=== PATIENT | female | born 1985 | race Two or more races ===

== ENCOUNTER 2021-10-17 10:24 | Observation (INO) | payer SELFPAY ==
[~2021-10-17] VITALS: Ht 144.8 cm; Wt 52.0 kg
[2021-10-17] MEDS ORDERED: ACCU-CHEK COMFORT CURVE STRIP VI ONE (11:00)
[2021-10-17] MEDS ORDERED: LACTATED RINGER'S 1,000 ML IV ONE (12:15)
[2021-10-17] MEDS ORDERED: TERBUTALINE SULFATE 1 MG/ML 1ML VIAL SC ONE (12:15)
[2021-10-28] MEDS ORDERED: NIF10C PO ×2 (15:53)
[2021-10-28] MEDS ORDERED: PREN27TA7 OR ×2 (15:53)
== END 2021-10-17 15:20 | disposition home or self-care (01) ==
LOC: EDBD → LDRP 10:24
PROVIDERS: ADMIT Obstetrics & Gynecology Obstetrics; ATTEND Obstetrics & Gynecology Obstetrics
DX: O24.419 Gestational diabetes mellitus in pregnancy, unspecified control (principal); Z3A.33 33 weeks gestation of pregnancy
CPT/HCPCS: 59025; 76818; 81002; 82948; 82962; 94760; 96360; 96361; G0378; J3105

== ENCOUNTER 2021-10-20 09:48 | Observation (INO) | payer MEDICAID, OTHER | END 2021-10-20 12:00 | disposition home or self-care (01) | LOC: UNDOADMOB 09:48 → LDRP 09:48 → EDBD 09:48 → LDRP 10:30 | PROVIDERS: ADMIT Obstetrics & Gynecology; ATTEND Obstetrics & Gynecology | DX: O24.419 Gestational diabetes mellitus in pregnancy, unspecified control (principal); O60.03 Preterm labor without delivery, third trimester; Z3A.33 33 weeks gestation of pregnancy; Z91.040 Latex allergy status | CPT/HCPCS: 59025; 76818; 81002; 82948; 82962; 94760; G0378 ==

== ENCOUNTER 2021-10-27 14:21 | Observation (INO) | payer MEDICAID ==
[~2021-10-27] VITALS: Ht 144.8 cm; Wt 49.9 kg
[2021-10-28] MEDS ORDERED: LACTATED RINGER'S 1,000 ML IV ONE ×3 (12:00→17:30)
[2021-10-28] MEDS: TERBUTALINE SULFATE 1 MG/ML 1ML VIAL SC SCH ×2 (12:16→14:08)
[2021-10-28] MEDS ORDERED: NIFEdipine 10 MG CAP PO ONE (13:30)
[2021-10-28] MEDS ORDERED: PREN27TA7 OR (15:53)
[2021-10-28] MEDS ORDERED: NIF10C PO (15:53)
[2021-10-28] MEDS ORDERED: BETAMETHASONE ACET (30mg/5ml) 5ml Vial 6mg/ml IM ONE (16:00)
[2021-10-28] MEDS ORDERED: ACETAMINOPHEN 325 MG TAB PO ONE (17:45)
[2021-10-28] MEDS ORDERED: ceFAZolin 1GM/50ML 50 ML IV ONE (17:45)
[2021-10-28] MEDS ORDERED: LACTATED RINGER'S 2,000 ML IV ONE (19:30)
[2021-10-28 19:38] LABS: Basophils # (auto) 0 10 ^3/uL (0-0.2); Basophils % (auto) 0.2 % (0.0-2.0); Eosinophils # (auto) 0 10 ^3/uL (0-0.8); Hemoglobin 10.6 g/dL (12.2-16.2); Lymphocytes # (auto) 0.2 10 ^3/uL (0.4-5.4); Lymphocytes % (auto) 2.2 % (10.0-50.0); Mean Corpuscular Hemoglobin 27.3 pg (28.0-32.0); Mean Corpuscular Hgb Conc. 32.2 g/dL (32.0-36.0); Mean Corpuscular Volume 84.8 fL (80.0-100.0); Monocytes # (auto) 0.2 10 ^3/uL (0-1.3); Neutrophils # (auto) 7.2 10 ^3/uL (1.6-8.6); Neutrophils % (auto) 94.6 % (37.0-80.0); Nucleated Red Blood Cells % 0.1 %; Red Blood Cells 3.89 10^6/uL (4.0-5.20); Red Cell Distribution Width 14.7 % (11.8-14.3); White Blood Cell 7.7 10^3/uL (4.4-10.8)
[2021-10-28 19:58] LABS: Phosphorus 1.4 mg/dL (2.5-4.90)
[2021-10-28 20:00] LABS: Albumin 2.2 g/dL (3.4-5.0); BUN/Creatinine Ratio 8.2; Calcium 8.6 mg/dL (8.5-10.1); Potassium 3.6 mmol/L (3.5-5.1)
[2021-10-28 20:03] LABS: Bilirubin, Total 0.4 mg/dL (0.2-1.0); Total Protein 6.2 g/dL (6.4-8.2)
[2021-10-28 21:24] LABS: Urine Bacteria FEW /hpf (None Seen); Urine Blood Negative /uL (Negative); Urine Specific Gravity 1.003 (1.001-1.035); Urine WBC <1 /hpf (0 - 5)
== END 2021-10-28 22:46 | disposition home or self-care (01) ==
LOC: LDRP 10-28 09:23 → UNDOADMOB 10-28 09:23 → LDRP 10-28 09:34
PROVIDERS: ADMIT Obstetrics & Gynecology; ATTEND Obstetrics & Gynecology
DX: O24.419 Gestational diabetes mellitus in pregnancy, unspecified control (principal); Z20.822 Contact with and (suspected) exposure to COVID-19; O60.03 Preterm labor without delivery, third trimester; Z3A.34 34 weeks gestation of pregnancy
CPT/HCPCS: 36415; 59025; 76805; 76818; 80053; 81001; 81002; 82948; 82962; 83735; 84100; 84484; 85025; 87426; 94760; 96361; 96365; 96366; 96372; G0378; J0690; J0702; J3105; U0003; 96360

== ENCOUNTER 2021-10-29 08:18 | Observation (INO) | payer MEDICAID ==
[~2021-10-29] VITALS: Ht 152.4 cm; Wt 65.8 kg
[~2021-10-29 08:18] MED LIST: NIF10C PO; PREN27TA7 OR
[2021-10-29] MEDS ORDERED: BETAMETHASONE ACET (30mg/5ml) 5ml Vial 6mg/ml IM ONE ×3 (10:23→10:56)
== END 2021-10-29 11:09 | disposition home or self-care (01) ==
LOC: UNDOADMOB 08:18 → LDRP 08:18
PROVIDERS: ADMIT Obstetrics & Gynecology; ATTEND Obstetrics & Gynecology
DX: O98.513 Other viral diseases complicating pregnancy, third trimester (principal); U07.1 COVID-19; O60.03 Preterm labor without delivery, third trimester; O24.419 Gestational diabetes mellitus in pregnancy, unspecified control; Z3A.34 34 weeks gestation of pregnancy; Z91.040 Latex allergy status
CPT/HCPCS: 82962; 96372; G0378

== ENCOUNTER 2021-10-31 08:35 | Observation (INO) | payer MEDICAID ==
[2021-10-31] MEDS ORDERED: LACTATED RINGER'S 1,000 ML IV ONE (10:00)
[2021-10-31] MEDS ORDERED: SODIUM CHLORIDE 0.9% 1,000 ML IV STA (10:06)
== END 2021-10-31 12:23 | disposition home or self-care (01) ==
LOC: LDRP 08:35
PROVIDERS: ADMIT Obstetrics & Gynecology; ATTEND Obstetrics & Gynecology
DX: O24.419 Gestational diabetes mellitus in pregnancy, unspecified control (principal); O60.03 Preterm labor without delivery, third trimester; Z3A.35 35 weeks gestation of pregnancy
CPT/HCPCS: 59025; 76818; 81002; 82948; 82962; 94760; 96360; 96361; G0378

== ENCOUNTER 2021-11-03 13:00 | Observation (INO) | payer MEDICAID | END 2021-11-03 15:07 | disposition home or self-care (01) | LOC: LDRP 13:00 → UNDOADMOB 13:00 → LDRP 13:41 → UNDODISOB 15:07 | PROVIDERS: ADMIT Obstetrics & Gynecology; ATTEND Obstetrics & Gynecology | DX: O24.419 Gestational diabetes mellitus in pregnancy, unspecified control (principal); O60.03 Preterm labor without delivery, third trimester; Z3A.35 35 weeks gestation of pregnancy; Z91.040 Latex allergy status | CPT/HCPCS: 36415; 59025; 76818; 81002; 82948; 82962; G0378 ==

== ENCOUNTER 2021-11-10 10:36 | Observation (INO) | payer MEDICAID ==
[~2021-11-10 10:36] MED LIST changes: -NIF10C PO
[2021-11-10 15:51] LABS: Basophils # (auto) 0 10 ^3/uL (0-0.2); Basophils % (auto) 0.3 % (0.0-2.0); Eosinophils # (auto) 0.1 10 ^3/uL (0-0.8); Eosinophils % (auto) 0.9 % (0.0-7.0); Hematocrit 34.4 % (36.0-46.0); Lymphocytes # (auto) 2.2 10 ^3/uL (0.4-5.4); Lymphocytes % (auto) 24.6 % (10.0-50.0); Mean Corpuscular Hemoglobin 27.1 pg (28.0-32.0); Mean Corpuscular Hgb Conc. 32.1 g/dL (32.0-36.0); Mean Corpuscular Volume 84.6 fL (80.0-100.0); Monocytes # (auto) 0.6 10 ^3/uL (0-1.3); Monocytes % (auto) 7.2 % (0.0-12.0); Neutrophils # (auto) 5.9 10 ^3/uL (1.6-8.6); Red Blood Cells 4.06 10^6/uL (4.0-5.20); Red Cell Distribution Width 14.7 % (11.8-14.3); White Blood Cell 8.9 10^3/uL (4.4-10.8)
[2021-11-10 16:06] LABS: INR 0.88 (0.9-1.15); Partial Thromboplastin Time 25.2 sec (24.6-33.4)
[2021-11-10 16:09] LABS: Albumin 2.3 g/dL (3.4-5.0); Calcium 8.6 mg/dL (8.5-10.1); Potassium 3.7 mmol/L (3.5-5.1)
[2021-11-10 16:13] LABS: BUN/Creatinine Ratio 11.4; Bilirubin, Total 0.3 mg/dL (0.2-1.0); Total Protein 6.6 g/dL (6.4-8.2)
[2021-11-10 16:29] LABS: Alcohol, Urine < 3.0 mg/dL (0-10); Amphetamine Screen, Urine NEGATIVE (NEGATIVE); Barbiturate Scree,Urine NEGATIVE (NEGATIVE); Benzodiazephine Screen, Urine NEGATIVE (NEGATIVE); Cannabinoid Screen, Urine NEGATIVE (NEGATIVE); Cocaine Screen, Urine NEGATIVE (NEGATIVE); Opiate Scree,Urine NEGATIVE (NEGATIVE); Phencyclidine Screen, Urine NEGATIVE (NEGATIVE)
[2021-11-10 16:42] LABS: Urine Bacteria FEW /hpf (None Seen); Urine Blood Negative /uL (Negative); Urine Specific Gravity 1.003 (1.001-1.035); Urine WBC 1 /hpf (0 - 5)
[2021-11-11 06:07] LABS: RPR Non Reactive (Non Reactive)
== END 2021-11-10 17:40 | disposition home or self-care (01) ==
LOC: UNDOADMOB 12:15 → OVERFLOW 12:15 → LDRP 13:39
PROVIDERS: ADMIT Obstetrics & Gynecology; ATTEND Obstetrics & Gynecology
DX: O24.419 Gestational diabetes mellitus in pregnancy, unspecified control (principal); Z20.822 Contact with and (suspected) exposure to COVID-19; Z3A.36 36 weeks gestation of pregnancy; Z79.899 Other long term (current) drug therapy
CPT/HCPCS: 36415; 59025; 76805; 76818; 80053; 80307; 81001; 82948; 82962; 85025; 85610; 85730; 86592; 86850; 86900; 86901; 87426; 94760; G0378

== ENCOUNTER 2021-11-11 08:31 | Observation (INO) | payer MEDICAID ==
[~2021-11-11] VITALS: Ht 145 cm; Wt 63.0 kg
[2021-11-11] MEDS ORDERED: D5W/LACTATED RINGERS 1,000 ML IV ONE (13:45)
[2021-11-11] MEDS ORDERED: SODIUM CHLORIDE 0.9% 1,000 ML IV SCH (16:30)
[2021-11-11 22:52] LABS: Protein, Urine 29.2 mg/dL (0.0-11.9)
== END 2021-11-11 22:10 | disposition home or self-care (01) ==
LOC: UNDOADMOB 10:41 → LDRP 10:41
PROVIDERS: ADMIT Obstetrics & Gynecology; ATTEND Obstetrics & Gynecology
DX: O36.8130 Decreased fetal movements, third trimester, not applicable or unspecified (principal); O62.9 Abnormality of forces of labor, unspecified; Z3A.36 36 weeks gestation of pregnancy; Z79.899 Other long term (current) drug therapy
CPT/HCPCS: 36415; 59025; 76818; 81002; 82570; 82948; 82962; 84156; 84550; 94760; 96360; 96361; G0378; 96366

== ENCOUNTER 2021-11-13 16:20 | Observation (INO) | payer MEDICAID ==
[~2021-11-13] VITALS: Ht 145 cm; Wt 63.0 kg
[2021-11-13] MEDS ORDERED: LACTATED RINGER'S 1,000 ML IV ONE ×2 (18:15→19:30)
== END 2021-11-13 21:27 | disposition home or self-care (01) ==
LOC: LDRP 16:20
PROVIDERS: ADMIT Obstetrics & Gynecology; ATTEND Obstetrics & Gynecology
DX: O24.419 Gestational diabetes mellitus in pregnancy, unspecified control (principal); O62.9 Abnormality of forces of labor, unspecified; Z3A.37 37 weeks gestation of pregnancy
CPT/HCPCS: 59025; 76818; 81002; 82948; 82962; 94762; 96360; 96361; G0378

== ENCOUNTER 2021-11-16 08:00 | Observation (INO) | payer MEDICAID | END 2021-11-16 10:00 | disposition home or self-care (01) | LOC: LDRP 08:00 | PROVIDERS: ADMIT Obstetrics & Gynecology Obstetrics; ATTEND Obstetrics & Gynecology Obstetrics | DX: O24.419 Gestational diabetes mellitus in pregnancy, unspecified control (principal); Z3A.37 37 weeks gestation of pregnancy | CPT/HCPCS: 59025; 76818; 82948; 82962; 94760; G0378 ==

== ENCOUNTER 2021-11-18 10:38 | Observation (INO) | payer MEDICAID | END 2021-11-18 14:40 | disposition home or self-care (01) | LOC: UNDOADMOB 12:32 → LDRP 12:32 | PROVIDERS: ADMIT Obstetrics & Gynecology; ATTEND Obstetrics & Gynecology | DX: O24.419 Gestational diabetes mellitus in pregnancy, unspecified control (principal); O62.9 Abnormality of forces of labor, unspecified; Z3A.38 38 weeks gestation of pregnancy | CPT/HCPCS: 59025; 76818; 81002; 82948; 82962; 94760; G0378 ==

== ENCOUNTER 2021-11-20 14:11 | Observation (INO) | payer MEDICAID | END 2021-11-20 17:00 | disposition home or self-care (01) | LOC: LDRP 14:11 → UNDOADMOB 14:11 → LDRP 14:22 | PROVIDERS: ADMIT Obstetrics & Gynecology; ATTEND Obstetrics & Gynecology | DX: O24.419 Gestational diabetes mellitus in pregnancy, unspecified control (principal); O62.9 Abnormality of forces of labor, unspecified; Z3A.38 38 weeks gestation of pregnancy | CPT/HCPCS: 59025; 76818; 81002; 82948; 82962; 94760; G0378 ==

== ENCOUNTER 2021-11-22 08:52 | Observation (INO) | payer MEDICAID ==
[~2021-11-22] VITALS: Ht 147.3 cm; Wt 60.8 kg
[2021-11-22] MEDS ORDERED: LACTATED RINGER'S 1,000 ML IV ONE (10:00)
[2021-11-22] MEDS ORDERED: LACT. RINGERS/OXYTOCIN 20UNITS 1,000 ML IV SCH (14:45)
== END 2021-11-22 18:02 | disposition home or self-care (01) ==
LOC: LDRP 08:52
PROVIDERS: ADMIT Obstetrics & Gynecology; ATTEND Obstetrics & Gynecology
DX: O24.419 Gestational diabetes mellitus in pregnancy, unspecified control (principal); Z3A.38 38 weeks gestation of pregnancy
CPT/HCPCS: 59025; 76818; 81002; 82948; 82962; 94760; 96361; 96365; G0378; J2590; 96360; 96366

== ENCOUNTER 2021-11-24 10:01 | Observation (INO) | payer MEDICAID | END 2021-11-24 14:53 | disposition home or self-care (01) | LOC: LDRP 13:10 | PROVIDERS: ADMIT Obstetrics & Gynecology; ATTEND Obstetrics & Gynecology | DX: O24.419 Gestational diabetes mellitus in pregnancy, unspecified control (principal); Z3A.38 38 weeks gestation of pregnancy | CPT/HCPCS: 59025; 76818; 81002; 82962; G0378 ==

== ENCOUNTER 2021-11-24 20:52 | Observation (INO) | payer MEDICAID | END 2021-11-24 23:42 | disposition home or self-care (01) | LOC: LDRP 20:52 | PROVIDERS: ADMIT Obstetrics & Gynecology; ATTEND Obstetrics & Gynecology | DX: O62.9 Abnormality of forces of labor, unspecified (principal); O24.419 Gestational diabetes mellitus in pregnancy, unspecified control; Z3A.38 38 weeks gestation of pregnancy; Z91.040 Latex allergy status | CPT/HCPCS: 59025; 81002; 82948; 82962; 94760; G0378 ==

== ENCOUNTER 2021-11-25 03:15 | Inpatient (IN) | payer MEDICAID ==
[~2021-11-25] VITALS: Ht 145 cm; Wt 60.8 kg
[2021-11-25] MEDS ORDERED: BUTORPHANOL TARTRATE 2 MG/1 ML VIAL IV PRN ×2 (03:45)
[2021-11-25] MEDS ORDERED: PHISODERM TOP SOLN 240ML BTL TOP PRN (03:45)
[2021-11-25] MEDS ORDERED: PROMETHAZINE HCL 25 MG/ML 1ML IV PRN (03:45)
[2021-11-25] MEDS ORDERED: DERMOPLAST 60ML BOTTLE TOP PRN (03:45)
[2021-11-25] MEDS ORDERED: LIDOCAINE 2%HCL (LOCAL ANESTH.) INJ 10ml MDV IJ PRN (03:45)
[2021-11-25] MEDS ORDERED: WITCH HAZEL-GLYCERIN PAD TOP PRN (03:45)
[2021-11-25] MEDS ORDERED: LACTATED RINGER'S 1,000 ML IV SCH (03:45)
[2021-11-25 04:12] LABS: Urine WBC None Seen /hpf (0 - 5)
[2021-11-25 04:15] LABS: Basophils # (auto) 0 10 ^3/uL (0-0.2); Basophils % (auto) 0.6 % (0.0-2.0); Eosinophils # (auto) 0.1 10 ^3/uL (0-0.8); Eosinophils % (auto) 1.2 % (0.0-7.0); Hematocrit 34.5 % (36.0-46.0); Hemoglobin 11.2 g/dL (12.2-16.2); Mean Corpuscular Hemoglobin 27.3 pg (28.0-32.0); Mean Corpuscular Hgb Conc. 32.6 g/dL (32.0-36.0); Mean Corpuscular Volume 83.6 fL (80.0-100.0); Monocytes # (auto) 0.5 10 ^3/uL (0-1.3); Monocytes % (auto) 6.8 % (0.0-12.0); Neutrophils # (auto) 4.9 10 ^3/uL (1.6-8.6); Neutrophils % (auto) 65.4 % (37.0-80.0); Red Blood Cells 4.12 10^6/uL (4.0-5.20); Red Cell Distribution Width 15.7 % (11.8-14.3); White Blood Cell 7.5 10^3/uL (4.4-10.8)
[2021-11-25 04:23] LABS: Urine Bacteria NONE SEEN /hpf (None Seen); Urine Blood Negative /uL (Negative); Urine Specific Gravity 1.002 (1.001-1.035)
[2021-11-25 04:33] LABS: Albumin 2.2 g/dL (3.4-5.0); Calcium 8.7 mg/dL (8.5-10.1); INR 0.87 (0.9-1.15); Partial Thromboplastin Time 27.1 sec (24.6-33.4); Potassium 3.5 mmol/L (3.5-5.1)
[2021-11-25 04:34] LABS: Alcohol, Urine < 3.0 mg/dL (0-10); Amphetamine Screen, Urine NEGATIVE (NEGATIVE); Barbiturate Scree,Urine NEGATIVE (NEGATIVE); Benzodiazephine Screen, Urine NEGATIVE (NEGATIVE); Cannabinoid Screen, Urine NEGATIVE (NEGATIVE); Cocaine Screen, Urine NEGATIVE (NEGATIVE); Opiate Scree,Urine NEGATIVE (NEGATIVE); Phencyclidine Screen, Urine NEGATIVE (NEGATIVE)
[2021-11-25 04:38] LABS: BUN/Creatinine Ratio 16.4; Bilirubin, Total 0.3 mg/dL (0.2-1.0); Total Protein 6.6 g/dL (6.4-8.2)
[2021-11-25] MEDS: SODIUM CHLORIDE 0.9% 1,000 ML IV SCH ×3 (05:45→09:26)
[2021-11-25] MEDS ORDERED: PENICILLIN G POTASSIUM 2,500,000 UNITS in D5W 5% 50 ML IV SCH (07:00)
[2021-11-25] MEDS ORDERED: PENICILLIN G POT 5MIL/D5 50ML 50 ML IV ONE (07:00)
[2021-11-25] MEDS ORDERED: LACT. RINGERS/OXYTOCIN 20UNITS 500 ML IV ONE ×2 (07:00→07:30)
[2021-11-25] MEDS ORDERED: fentaNYL CITRATE 100 MCG/2 ML VL IV ONE (07:30)
[2021-11-25] MEDS ORDERED: ePHEDrine SULFATE 50 MG/ML AMP IV ONE (07:30)
[2021-11-25] MEDS ORDERED: NALOXONE HCL 0.4 MG/ML VIAL IV ONE (07:30)
[2021-11-25] MEDS ORDERED: ROPIVACAINE HCL 200 ML EPI SCH (07:30)
[2021-11-25] MEDS ORDERED: Lidocaine W-Epinephrine 1.5%-1:200,000 INJ 10ml Vial ONE (08:46)
[2021-11-25] MEDS ORDERED: METHYLERGONOVINE MALEATE 0.2 MG/ML AMP IM ONE ×2 (10:15→10:17)
[2021-11-25] MEDS ORDERED: ACETAMINOPHEN 325 MG TAB PO PRN (11:45)
[2021-11-25] MEDS ORDERED: ONDANSETRON ODT 4 MG TAB PO PRN (11:45)
[2021-11-25] MEDS: IBUPROFEN 600 MG TAB PO PRN ×2 (12:27→17:46)
[2021-11-25 15:10] VITALS: BP 113/70
[2021-11-25 19:30] VITALS: BP 93/51
[2021-11-25] MEDS ORDERED: DOCUSATE SOD 100 MG CAP PO SCH (22:00)
[2021-11-25 22:36] VITALS: BP 98/63
[2021-11-26] MEDS: IBUPROFEN 600 MG TAB PO PRN (02:59)
[2021-11-26 03:30] VITALS: BP 99/62
[2021-11-26 07:00] VITALS: BP 99/62
[2021-11-26 07:06] LABS: Rubella Antibodies, IgG 6.02 index (Immune >0.99)
[2021-11-26 08:06] LABS: RPR Non Reactive (Non Reactive)
[2021-11-26 11:00] VITALS: BP 100/64
== END 2021-11-26 16:22 | disposition home or self-care (01) | DRG 560 ==
LOC: LDRP 03:15 → OBSVTOIN 03:40
PROVIDERS: ADMIT Obstetrics & Gynecology; ATTEND Obstetrics & Gynecology
PROC: 10E0XZZ Delivery of Products of Conception, External Approach (ICD-10-PCS; principal; 2021-11-25)
PROC: 0HQ9XZZ Repair Perineum Skin, External Approach (ICD-10-PCS; 2021-11-25)
PROC: 3E0R3BZ Introduction of Anesthetic Agent into Spinal Canal, Percutaneous Approach (ICD-10-PCS; 2021-11-25)
PROC: 00HU33Z Insertion of Infusion Device into Spinal Canal, Percutaneous Approach (ICD-10-PCS; 2021-11-25)
DX: O24.429 Gestational diabetes mellitus in childbirth, unspecified control (principal); Z37.0 Single live birth; O70.0 First degree perineal laceration during delivery; Z91.040 Latex allergy status; Z3A.38 38 weeks gestation of pregnancy; Z20.822 Contact with and (suspected) exposure to COVID-19
CPT/HCPCS: 36415; 59025; 59409; 62282; 76818; 80053; 80307; 81001; 81002; 82948; 82962; 84112; 85025; 85610; 85730; 86592; 86762; 86850; 86900; 86901; 94760; 94762; 96360; 96361; 96365; 96366; 96372; G0378; J2540; J2590; J7060

== ENCOUNTER 2023-11-07 22:26 | Emergency (ER) | payer MEDICAID ==
[~2023-11-07] VITALS: Ht 149.9 cm; Wt 66.0 kg
[2023-11-07] MEDS ORDERED: IBUPROFEN 600 MG TAB PO ONE (23:00)
[2023-11-07 23:52] LABS: Rapid Influenza A Negative (Negative); Rapid Influenza B Negative (Negative)
[2023-11-07 23:55] LABS: COVID19 ANTIGEN SOFIA FIA POSITIVE (NEGATIVE)
[2023-11-08 02:33] VITALS: BP 115/77; PULSE 93; RESP 18; TEMP 98.8; O2SAT 100
[2023-11-08] MEDS ORDERED: ACET500T58 PO (02:34)
[2023-11-08] MEDS ORDERED: AMOX875T4 PO (02:34)
[2023-11-08] MEDS ORDERED: PRED20TA2 PO (02:34)
[2023-11-08] MEDS: methylPREDNISolone SOD SUCC 125 MG/2 ML VL IM ONE (02:44)
[2023-11-08] MEDS: cefTRIAXone SOD 1,000 MG VL IM ONE (02:45)
[2023-11-08] MEDS: ACETAMINOPHEN 325 MG TAB PO ONE (02:45)
== END 2023-11-08 03:01 | disposition home or self-care (01) ==
LOC: ER 22:26
DX: U07.1 COVID-19 (principal); J06.9 Acute upper respiratory infection, unspecified
CPT/HCPCS: 36415; 87426; 87804; 96372; 99284; J0696; J2919